=== PATIENT | female | born 1960 | race Hispanic/Latino ===

== ENCOUNTER 2023-11-21 05:37 | Inpatient (IN) | payer OTHER ==
[2023-11-21] VITALS (11 sets, daily range): BP systolic 142–182; BP diastolic 67–87; PULSE 60–90; RESP 14–24; O2SAT 94–100
[~2023-11-21] VITALS: Ht 134.6 cm; Wt 61.9 kg
[2023-11-21] MEDS: ALBUTEROL 0.083% 2.5 MG/3 ML INH IH ONE (06:08)
[2023-11-21 06:33] LABS: BASOPHILS # (AUTO) 0.03 K/uL (0.00-0.20); BASOPHILS % (AUTO) 0.4 % (0.0-5.0); EOSINOPHILS # (AUTO) 0.05 K/uL (0.00-0.70); EOSINOPHILS % (AUTO) 0.7 % (0.0-8.0); HEMATOCRIT 29.6 % (36-48); IMMATURE GRANULOCYTE ABSOLUTE 0.02 K/uL (0-1); LYMPHOCYTES # (AUTO) 0.9 K/uL (1.0-4.8); LYMPHOCYTES % (AUTO) 13.5 % (21.0-51.0); MEAN CORPUSCULAR HEMOGLOBIN 27.7 pg (27.0-33.0); MEAN CORPUSCULAR HGB CONC 32.4 g/dL (32.0-36.0); MEAN CORPUSCULAR VOLUME 85.5 fL (79-99); MONOCYTES # (AUTO) 0.3 K/uL (0.1-1.0); MONOCYTES % (AUTO) 3.9 % (3.0-13.0); NEUTROPHILS # (AUTO) 5.6 K/uL (1.8-7.7); NEUTROPHILS % (AUTO) 81.2 % (40.0-77.0); PLATELET COUNT (AUTO) 192 K/uL (130-400); RED BLOOD CELL COUNT(AUTO) 3.46 MIL/uL (4.00-5.50); RED CELL DISTRIBUTION WIDTH 14.6 % (11.0-15.5); WHITE BLOOD COUNT (AUTO) 6.9 K/uL (4.8-10.8)
[2023-11-21 06:44] LABS: INR <= 0.93 (0.85-1.15); PROTHROMBIN TIME 10.9 SEC (9.6-11.6)
[2023-11-21 06:45] LABS: PARTIAL THROMBOPLASTIN TIME 27.6 SEC (26.3-35.5)
[2023-11-21 06:46] LABS: RAPID GROUP A STREP negative (NEGATIVE)
[2023-11-21 06:57] LABS: ALBUMIN 2.7 g/dL (3.5-5.0); CREATININE 5.4 mg/dL (0.5-1.0); POTASSIUM 5.9 mmol/L (3.5-5.1)
[2023-11-21 06:57] LABS: COVID19 (SARS ANTIGEN RAPID) PRESUMPTIVE NEGATIVE (NEGATIVE); RSV negative (NEGATIVE)
[2023-11-21 06:58] LABS: INFLUENZA TYPE A Negative For Type A (NEGATIVE); INFLUENZA TYPE B Negative For Type B (NEGATIVE)
[2023-11-21 07:00] LABS: BILIRUBIN,TOTAL 0.2 mg/dL (0.2-1.0); TOTAL PROTEIN, SERUM 6.3 g/dL (6.0-8.3)
[2023-11-21] MEDS: ENOXAPARIN SODIUM 40 MG/0.4 ML SYRINGE SQ ONE (07:02)
[2023-11-21 07:27] LABS: APPEARANCE,URINE CLOUDY (CLEAR); BILIRUBIN,URINE NEGATIVE (NEGATIVE); COLOR,URINE LIGHT-YELLOW (YELLOW); GLUCOSE, URINE (UA) 300 mg/dL (NEGATIVE); KETONES,URINE NEGATIVE (NEGATIVE); LEUKOCYTE ESTERASE ,URINE 25 Leu/uL (NEGATIVE); NITRATE,URINE NEGATIVE (NEGATIVE); PROTEIN,URINE 600 mg/dL (NEGATIVE); UROBILINOGEN,URINE 0.2 mg/dL (0.2-1.0)
[2023-11-21 07:31] LABS: ADD UA MICROSCOPIC YES
[2023-11-21] MEDS: CEFTRIAXONE 2GM VIAL IVPB ONE (07:35)
[2023-11-21 07:36] LABS: BACTERIA,URINE RARE /HPF (None Seen); MUCUS,URINE RARE LPF (None Seen); SQUAMOUS EPITHELIAL CELL,UR FEW /HPF (0-2); TRANSITIONAL EPI CELLS,URINE RARE /HPF (None Seen); WBC,URINE 51-100 /HPF (0-1)
[2023-11-21] MEDS: ONDANSETRON 4MG INJ IVP ONE (08:25)
[2023-11-21] MEDS: MORPHINE 4 MG SYG IM ONE (08:26)
[2023-11-21] MEDS ORDERED: DEXTROSE 50%-WATER 25 GM/50 ML VIAL IV ONE (09:00)
[2023-11-21] MEDS: ALBUTEROL 0.083% 2.5 MG/3 ML INH IH SCH (09:06)
[2023-11-21] MEDS: INSULIN HUMULIN R 100 UNIT/ML 3ML IV ONE (09:28)
[2023-11-21] MEDS: CALCIUM GLUC 1GM 1 GM in 0.9%NACL 100ML 100 ML IV ONE (09:42)
[2023-11-21] MEDS: FUROSEMIDE 40MG VIAL IV ONE (09:45)
[2023-11-21] MEDS: NA ZIRCON CYCLOSIL(LOKELMA 10GM) PO ONE (09:45)
[2023-11-21] MEDS: DEXTROSE 50%-WATER 50 ML DISP.SYRIN IV ONE (09:47)
[2023-11-21 10:55] LABS: CREATININE 5.4 mg/dL (0.5-1.0); HEMOGLOBIN A1C 8.6 % (4.0-6.0); POTASSIUM 5.5 mmol/L (3.5-5.1)
[2023-11-21 11:13] LABS: THYROID STIMULATING HORMONE 3.01 uIU/mL (0.36-3.74)
[2023-11-21 11:15] LABS: ABG BASE EXCESS -7.8 mmol/L (-2.0-3.0); ABG HCO3 20.1 mmol/L (21.0-28.0); ABG OXYGEN SATURATION 98.1 % (95.0-99.0); ABG PCO2 52 mmHg (32-45); ABG PH 7.205 (7.35-7.450); CARBON MONOXIDE 0.4; HHb 1.9; PO2, ARTERIAL BG 141.4 mmHg (83.0-108.0); VENT MODE, BG NRM (ROOM AIR)
[2023-11-21] MEDS: INSULIN HUMULIN R 100 UNIT/ML 3ML SQ SCH (11:20)
[2023-11-21] MEDS: AZITHROMYCIN 500MG+NS 250ML 250 ML IVPB SCH (11:30)
[2023-11-21] MEDS ORDERED: BUMETANIDE 1MG/4ML VIAL IVP SCH (11:30)
[2023-11-21] MEDS: HEPARIN 5,000 UNIT VIAL SQ SCH (11:30)
[2023-11-21] MEDS ORDERED: ACETYLCYSTEINE 10% 100MG/ML 4ML VIAL PO SCH (11:30)
[2023-11-21] MEDS: NALOXONE HCL 0.4 MG/1 ML ML IVP SCH (11:45)
[2023-11-21] MEDS: NALOXONE HCL 0.4 MG/1 ML ML ONE (11:46)
[2023-11-21 11:51] LABS: CREATININE,URINE RANDOM 119.19 mg/dL (30-135)
[2023-11-21 12:46] LABS: CREATININE 5.5 mg/dL (0.5-1.0); POTASSIUM 5.1 mmol/L (3.5-5.1)
[2023-11-21 13:02] LABS: PROTEIN,URINE RANDOM 1161.6 mg/dL (0-11.9)
[2023-11-21] MEDS ORDERED: ACETAMINOPHEN 500 MG TABLET PO PRN (13:30)
[2023-11-21] MEDS: IPRATROPIUM 0.5 MG/2.5 ML INH IH SCH (13:35)
[2023-11-21] MEDS: GUAIFENESIN-DM 200/20 MG 10 ML PO PRN (15:58)
[2023-11-21 16:27] LABS: ABG OXYGEN SATURATION 87.4 % (95.0-99.0); ABG PCO2 47 mmHg (32-45); ABG PH 7.268 (7.35-7.450); PO2, ARTERIAL BG 60.1 mmHg (83.0-108.0); VENT MODE, BG NC (ROOM AIR)
[2023-11-21 17:58] LABS: CREATININE 5.4 mg/dL (0.5-1.0); POTASSIUM 5.4 mmol/L (3.5-5.1)
[2023-11-21] MEDS ORDERED: METO5TAB7 PO (19:46)
[2023-11-21] MEDS ORDERED: HYDR50TA37 PO (19:49)
[2023-11-21] MEDS ORDERED: NIFE-40 PO (19:51)
[2023-11-21] MEDS ORDERED: CARV25TA PO (19:52)
[2023-11-21] MEDS ORDERED: vit (19:57)
[2023-11-21] MEDS ORDERED: ATOR10 PO (19:58)
[2023-11-21] MEDS ORDERED: FURO20TA4 PO (20:07)
[2023-11-21] MEDS: FAMOTIDINE 20MG VIAL IV SCH (21:01)
[2023-11-21] MEDS: HYDRALAZINE 20MG/ML VIAL IV ONE (21:06)
[2023-11-21] MEDS ORDERED: KAYEXALATE 15GM/60ML PO PRN (21:30)
[2023-11-21 23:38] LABS: CREATININE 5.3 mg/dL (0.5-1.0); POTASSIUM 5.8 mmol/L (3.5-5.1)
[2023-11-22] VITALS (23 sets, daily range): BP systolic 103–186; BP diastolic 58–84; PULSE 66–84; RESP 13–20; O2SAT 92–100
[2023-11-22 03:28] LABS: BASOPHILS # (AUTO) 0.01 K/uL (0.00-0.20); BASOPHILS % (AUTO) 0.1 % (0.0-5.0); EOSINOPHILS # (AUTO) 0.02 K/uL (0.00-0.70); EOSINOPHILS % (AUTO) 0.2 % (0.0-8.0); IMMATURE GRANULOCYTE ABSOLUTE 0.05 K/uL (0-1); LYMPHOCYTES # (AUTO) 0.8 K/uL (1.0-4.8); LYMPHOCYTES % (AUTO) 6.7 % (21.0-51.0); MEAN CORPUSCULAR HEMOGLOBIN 28.2 pg (27.0-33.0); MONOCYTES # (AUTO) 0.4 K/uL (0.1-1.0); MONOCYTES % (AUTO) 3.6 % (3.0-13.0); NEUTROPHILS # (AUTO) 9.9 K/uL (1.8-7.7); PLATELET COUNT (AUTO) 182 K/uL (130-400); RED BLOOD CELL COUNT(AUTO) 3.41 MIL/uL (4.00-5.50); RED CELL DISTRIBUTION WIDTH 14.4 % (11.0-15.5); WHITE BLOOD COUNT (AUTO) 11.1 K/uL (4.8-10.8)
[2023-11-22 03:30] LABS: ABG BASE EXCESS -6.3 mmol/L (-2.0-3.0); ABG HCO3 20.3 mmol/L (21.0-28.0); ABG OXYGEN SATURATION 93.8 % (95.0-99.0); ABG PCO2 44 mmHg (32-45); ABG PH 7.283 (7.35-7.450); DEVICE COMMENT RR RN ROB; VENT MODE, BG NC (ROOM AIR)
[2023-11-22 03:36] LABS: CREATININE 5.5 mg/dL (0.5-1.0); MAGNESIUM 2.2 mg/dL (1.80-2.40); PHOSPHORUS 6.3 mg/dL (2.5-4.9); POTASSIUM 5.6 mmol/L (3.5-5.1)
[2023-11-22 04:08] LABS: B-TYPE NATRIURETIC PEPTIDE 643 pg/mL (0-100)
[2023-11-22] MEDS ORDERED: HYDRALAZINE 20MG/ML VIAL IV PRN (04:30)
[2023-11-22] MEDS: CEFTRIAXONE 2GM VIAL IVPB SCH (04:49)
[2023-11-22] MEDS: HYDRALAZINE 20MG/ML VIAL ONE (04:51)
[2023-11-22] MEDS ORDERED: CEFTRIAXONE 2GM VIAL IVPB SCH (09:00)
[2023-11-22] MEDS: HYDRALAZINE 25MG TABLET PO SCH (09:26)
[2023-11-22] MEDS: NIFEDIPINE ER 30 MG TAB PO SCH (09:26)
[2023-11-22] MEDS: FUROSEMIDE 40MG VIAL IV SCH (09:27)
[2023-11-22] MEDS ORDERED: FUROSEMIDE 40MG VIAL IV SCH (09:30)
[2023-11-22] MEDS: NA ZIRCON CYCLOSIL(LOKELMA 10GM) PO ONE (09:39)
[2023-11-22 09:49] LABS: GLUCOSE PLEURAL FLUID 138
[2023-11-22 09:50] LABS: PROTEIN PLEURAL FLUID < 2.0 mg/dL
[2023-11-22] MEDS: CARVEDILOL 25 MG TABLET PO SCH (11:43)
[2023-11-22] MEDS: SEVELAMER HCL 800 MG TABLET PO SCH (11:43)
[2023-11-22 12:57] LABS: BODY FLUID RBC 10 /cu. mm.; BODY FLUID WBC 130 /cu. mm.
[2023-11-22 12:58] LABS: APPEARANCE BODY FLUID CLEAR (CLEAR); COLOR,BODY FLUID LT YELLOW (LT YELLOW); SPECIMENTYPE,BODY FLUID PLEURAL; TOTAL VOLUME,BODY FLUID 1500 mL
[2023-11-22 13:23] LABS: BF LYMPHOCYTE 19 %; BF MACROPHAGE 1; BF MONOCYTE 4 %; BF TOTAL CELLS COUNTED 100
[2023-11-22] MEDS ORDERED: ONDANSETRON 4MG INJ IVP PRN (16:45)
[2023-11-22] MEDS: ONDANSETRON 4MG INJ ONE (16:53)
[2023-11-23] VITALS (15 sets, daily range): BP systolic 97–166; BP diastolic 49–79; PULSE 70–79; RESP 16–20; O2SAT 81–100
[2023-11-23 03:57] LABS: HEMATOCRIT 27.3 % (36-48); MEAN CORPUSCULAR HEMOGLOBIN 27.4 pg (27.0-33.0); MEAN CORPUSCULAR HGB CONC 31.5 g/dL (32.0-36.0); MEAN CORPUSCULAR VOLUME 86.9 fL (79-99); RED BLOOD CELL COUNT(AUTO) 3.14 MIL/uL (4.00-5.50); RED CELL DISTRIBUTION WIDTH 14.9 % (11.0-15.5); WHITE BLOOD COUNT (AUTO) 6.6 K/uL (4.8-10.8)
[2023-11-23 04:14] LABS: ALBUMIN 2.2 g/dL (3.5-5.0); BILIRUBIN,TOTAL 0.1 mg/dL (0.2-1.0); CREATININE 5.9 mg/dL (0.5-1.0); MAGNESIUM 2.2 mg/dL (1.80-2.40); POTASSIUM 5.1 mmol/L (3.5-5.1); TOTAL PROTEIN, SERUM 5.2 g/dL (6.0-8.3)
[2023-11-23] MEDS: FUROSEMIDE 40 MG TABLET PO SCH (12:51)
[2023-11-24] VITALS (8 sets, daily range): BP systolic 142–164; BP diastolic 62–73; PULSE 71–77; RESP 14–17; O2SAT 90–93
[2023-11-24 05:11] LABS: HEMATOCRIT 27.1 % (36-48); MEAN CORPUSCULAR HEMOGLOBIN 27.9 pg (27.0-33.0); PLATELET COUNT (AUTO) 161 K/uL (130-400); RED BLOOD CELL COUNT(AUTO) 3.01 MIL/uL (4.00-5.50); RED CELL DISTRIBUTION WIDTH 14.6 % (11.0-15.5); WHITE BLOOD COUNT (AUTO) 6.4 K/uL (4.8-10.8)
[2023-11-24 05:38] LABS: BILIRUBIN,TOTAL 0.2 mg/dL (0.2-1.0); MAGNESIUM 2.1 mg/dL (1.80-2.40); POTASSIUM 5.3 mmol/L (3.5-5.1); TOTAL PROTEIN, SERUM 5.1 g/dL (6.0-8.3)
[2023-11-24] MEDS ORDERED: FURO40TA7 PO (11:22)
[2023-11-24] MEDS ORDERED: Sevelamer Hcl PO (11:22)
[2023-11-24] MEDS: NA ZIRCON CYCLOSIL(LOKELMA 10GM) PO ONE (11:52)
== END 2023-11-24 16:45 | disposition home or self-care (01) | DRG 682 ==
LOC: EDH 05:37 → EDHIP 05:38 → UNDOADMIN 09:27 → 2CV 19:18 → EDHIP 19:18 → 2AH 11-22 12:03 → 4BH 11-24 01:25 → 2AH 11-24 03:04 → 4BH 11-24 03:26
PROVIDERS: ADMIT Internal Medicine; ATTEND Internal Medicine
PROC: 5A09357 Assistance with Respiratory Ventilation, Less than 24 Consecutive Hours, Continuous Positive Airway Pressure (ICD-10-PCS; principal; 2023-11-21)
PROC: 5A09357 Assistance with Respiratory Ventilation, Less than 24 Consecutive Hours, Continuous Positive Airway Pressure (ICD-10-PCS; 2023-11-22)
PROC: 0W9930Z Drainage of Right Pleural Cavity with Drainage Device, Percutaneous Approach (ICD-10-PCS; 2023-11-22)
DX: N17.9 Acute kidney failure, unspecified (principal); J18.9 Pneumonia, unspecified organism; J96.01 Acute respiratory failure with hypoxia; J96.02 Acute respiratory failure with hypercapnia; J90 Pleural effusion, not elsewhere classified; N30.00 Acute cystitis without hematuria; C90.00 Multiple myeloma not having achieved remission; J98.11 Atelectasis; N18.9 Chronic kidney disease, unspecified; E11.22 Type 2 diabetes mellitus with diabetic chronic kidney disease; E87.5 Hyperkalemia; E11.65 Type 2 diabetes mellitus with hyperglycemia; D64.9 Anemia, unspecified; E66.9 Obesity, unspecified; E78.5 Hyperlipidemia, unspecified; E87.70 Fluid overload, unspecified; I51.7 Cardiomegaly; Z68.34 Body mass index [BMI] 34.0-34.9, adult; Z88.5 Allergy status to narcotic agent; Z79.899 Other long term (current) drug therapy
CPT/HCPCS: 32555; 36415; 36600; 70450; 71045; 71250; 76700; 80048; 80053; 81001; 82435; 82550; 82570; 82803; 82945; 82947; 82948; 83036; 83605; 83615; 83690; 83735; 83880; 83986; 84100; 84132; 84145; 84156; 84157; 84295; 84443; 84484; 85018; 85025; 85027; 85378; 85610; 85730; 86140; 87040; 87071; 87088; 87205; 87426; 87804; 87807; 87880; 88112; 88305; 89051; 93005; 93306; 93356; 94640; 94660; 94664; C1729; G0378; J0360; J0610; J0696; J1815; J1940; J2270; J2310; J2405; J3490; J7070